=== PATIENT | female | born 1960 | race Caucasian/White ===

== ENCOUNTER 2022-11-14 00:52 | Day surgery (SDC) | payer BC, SELFPAY ==
--- NOTE | 2022-11-13 18:19 | PM.HPGS ---
History of Present Illness History of Present Illness Consent: Risks, benefits, and alternatives have been discussed and questions answered. Patient agrees to proceed with procedure. Chief complaint: neoplasm screening Narrative: Nela Davis is a 62 year old female referred for colon cancer screening. Review of Systems Review of Systems: All systems reviewed & are unremarkable except as noted in HPI and below [facility] Social History Social History Smoking status: Never smoker Alcohol intake: current Substance use: never Substance use type: does not use Living arrangements: alone Spiritual care concerns: No Meds Home Medications and Allergies Home Medications Medication Instructions Recorded Confirmed Type triamterene 37.5 1 cap PO DAILY 11/06/22 11/06/22 History mg-hydrochlorothiazide 25 mg capsule Allergies Allergy/AdvReac Type Severity Reaction Status Date / Time Sulfa (Sulfonamide Allergy Severe Difficulty Verified 11/14/22 08:07 Antibiotics) Breathing Exam Resp: Auscultation: clear to auscultation bilaterally Cardio: Rate: regular rate Rhythm: regular rhythm GI: GI Palp: Yes Soft to palpation and No Tenderness to palpation present (GI) Assessment and Plan Assessment and plan (1) Colon cancer screening: Code(s): Z12.11 - Encounter for screening for malignant neoplasm of colon Status: Acute Assessment and Plan: Colonoscopy with possible biopsy or polypectomy or cautery or injection of substances.
[2022-11-14 08:09] VITALS: BP 156/96; PULSE 70; RESP 16; TEMP 36.2; O2SAT 99
[2022-11-14] MEDS: LACTATED RINGERS 1,000 ML 150 ML IV CONT (08:19)
--- NOTE | 2022-11-14 09:01 | WPDANESEPPF ---
Anes - Initial Pre Proc Eval Procedure: Operation Date: 11/14/22 09:30 Proposed Procedures p Screening Colonoscopy - Suraj Jain MD Date/Time: 11/14/22 09:01 Surgeon: Suraj Jain MD Pre Op Diagnosis: neoplasm screening Patient Data Age: 62 Gender: F Height: 1.65 m Weight: 83.5 kg Last Vital Signs Temp 36.2 C L 11/14/22 08:09 Pulse 70 11/14/22 08:09 Resp 16 11/14/22 08:09 BP 156/96 H 11/14/22 08:09 Pulse Ox 99 11/14/22 08:09 O2 Del Method Room Air 11/14/22 08:09 Allergies Allergy/AdvReac Type Severity Reaction Status Date / Time Sulfa (Sulfonamide Allergy Severe Difficulty Verified 11/14/22 08:07 Antibiotics) Breathing Home Medications Medication Instructions Recorded Confirmed Type triamterene 37.5 1 cap PO DAILY 11/06/22 11/06/22 History mg-hydrochlorothiazide 25 mg capsule Patient hx anesthesia problems: none Family hx anesthesia problems: none Results Review: All pre-operative results and documents have been reviewed as part of the pre-operative evaluation. [facility] Social History Social History Smoking status: Never smoker Alcohol intake: current Substance use: never Substance use type: does not use Living arrangements: alone Spiritual care concerns: No Anes - Eval Final PreProcedure Day of Procedure 11/14/22 09:01 Patient weight: overweight Heart: regular rate and rhythm Lungs: clear to auscultation Airway: Mallampati scale class II Neurological: alert and oriented Last oral intake: >/= 8 hours ASA classification: II Emergent: no Anesthetic plan: proceed Anesthesia type and monitoring: general GIVS and standard monitoring Results Review: All pre-operative results and documents have been reviewed as part of the pre-operative evaluation. Informed Consent: The patient's anesthetic plan and its attendant risks and benefits were discussed with the patient/family/POA. Questions were solicited and answers provided to the satisfaction of the patient/family/POA.
[2022-11-14 09:31] VITALS: BP 129/81; PULSE 65; RESP 18; O2SAT 93
[2022-11-14 09:41] VITALS: BP 126/80; PULSE 59; RESP 22; O2SAT 100
[2022-11-14 09:51] VITALS: BP 134/89; PULSE 57; RESP 21; O2SAT 100
== END 2022-11-14 09:58 | disposition home or self-care (01) ==
PROVIDERS: Visit Provider Internal Medicine Gastroenterology
PROC: 0DJD8ZZ Inspection of Lower Intestinal Tract, Via Natural or Artificial Opening Endoscopic (ICD-10-PCS; CPT 45378; principal; 2022-11-14 09:30)
DX: Z12.11 Encounter for screening for malignant neoplasm of colon (principal)
CPT/HCPCS: 45378; J2704; J7120